=== PATIENT | female | born 1945 | race Caucasian/White ===

== ENCOUNTER 2018-06-04 06:11 | Inpatient (IN) | payer MEDICARE ==
[2018-06-04] MEDS ORDERED: Protamine Sulfate 50 MG/5 ML VIAL ONE (06:31)
[2018-06-04] MEDS ORDERED: Heparin 5,000 UNITS/ML VIAL ONE (06:31)
[2018-06-04] MEDS ORDERED: CEFAZOLIN 2 GM/50 ML BAG ONE (06:33)
[2018-06-04 06:42] LABS: #Basophils 0.1 thou/uL (0.0-0.2); #Eosinphils 0.7 thou/uL (0.0-0.7); #Lymphocytes 2.2 thou/uL (1.20-3.40); #Monocytes 0.7 thou/uL (0.11-0.59); #Neutrophils 3.8 thou/uL (1.40-6.50); %Basophils 1.1 % (0.0-1.0); %Eosinophils 9.2 % (0.0-10.0); %Lymphocytes 29.4 % (21.0-51.0); %Monocytes 8.9 % (0.0-10.0); %Neutrophils 51.4 % (42.0-75.0); Hemoglobin 12.2 g/dL (12.0-16.0); Mean Corpuscular HGB CONC 31.3 g/dL (32.0-36.0); Mean Corpuscular Hemoglobin 26.2 pg (27.0-31.0); Mean Corpuscular Volume 83.8 fL (78.0-98.0); Mean Platelet Volume 9.1 fL (7.4-10.4); Platelet Count 271 thou/uL (130-400); RBC Distribution Width 17.4 % (11.5-14.5); Red Blood Cell (RBC) Count 4.65 mill/uL (4.20-5.40); White Blood Cell (WBC) Count 7.3 thou/uL (4.8-10.8)
[2018-06-04 07:02] LABS: Anion Gap 11 mmol/L (10-20); BUN (Urea Nitrogen) 12 mg/dL (9.8-20.1); Calc. Creatinine Clearance 76 mL/min (70-130); Calcium 10.1 mg/dL (7.8-10.44); Carbon Dioxide 27 mmol/L (23-31); Chloride 106 mmol/L (98-107); Estimated GFR-MDRD 77; Glucose 114 mg/dL (83-110); Potassium 3.9 mmol/L (3.5-5.1); Sodium 140 mmol/L (136-145)
[2018-06-04] MEDS ORDERED: Nitroglycerin 50 MG/250 ML BOT 250 ML ONE (07:33)
[2018-06-04] MEDS ORDERED: Fentanyl 100 MCG/2 ML VIAL ONE (07:33)
[2018-06-04] MEDS ORDERED: Bupivacaine HCl 0.5%/Epinephrine 1:200,000/PF 30 ml Vial ONE (08:01)
[2018-06-04] MEDS ORDERED: Promethazine HCl 25 MG/ML VIAL SLOW IVP PRN (09:16)
[2018-06-04] MEDS ORDERED: Promethazine HCl 25 MG/ML VIAL IM PRN ×2 (09:16→14:23)
[2018-06-04] MEDS ORDERED: Ondansetron HCl/PF 4 MG/2 ML Vial IVP PRN (09:16)
[2018-06-04] MEDS ORDERED: Ondansetron PF 4 MG/2 ML Vial ONE (09:20)
--- NOTE | 2018-06-04 10:05 | OP ---
DATE OF PROCEDURE: 06/04/2018 PREOPERATIVE DIAGNOSIS: Asymptomatic right carotid stenosis. POSTOPERATIVE DIAGNOSIS: Asymptomatic right carotid stenosis. PROCEDURE: Right carotid endarterectomy with patch angioplasty. SURGEON: Brain Faria M.D. ANESTHESIA: General endotracheal. ESTIMATED BLOOD LOSS: Less than 100. SPECIMENS: Right jugular chain lymph nodes. PROCEDURE IN DETAIL: After consent was obtained, the patient was brought to the operating room and p laced in supine position on the operating room table. Appropriate anesthetic monitor was placed and general endotracheal anesthesia induced. Head was rotated to the left. Right neck was prepped and d raped in usual sterile fashion. Joints were appropriately supported. The skin incision was made barbara ng the anterior border of sternocleidomastoid. Platysma was incised with electrocautery. Sternoclei domastoid muscle was mobilized. The incision extended high towards the jaw line due to the extent of distal plaque within her internal carotid artery. Facial vein branch was divided between clips and ties. The common internal and external carotid arteries were carefully exposed. 5000 units of hepar in were given. After 3 minutes, internal, common, and external carotid arteries were serially clampe d. Incision was made on the common carotid artery extended through the bulb onto the internal caroti d artery distal to the plaque. A 10-[place] shunt was placed and antegrade flow reestablished. Endarterectomy was begun in the medial plane on the common carotid artery. This was extended throu gh the bulb on the internal carotid artery. Good tapered distal endpoint was obtained. An eversion endarterectomy was performed of the external carotid artery. Medial fibers were debrided. Artery wa s flushed with heparinized saline. Bovine pericardial patch was sewn in place with running 6-0 Prole ne suture. Prior to completion of the patch suture line, the shunt was clamped and removed. Arterie s were backbled and flushed with heparinized saline. Patch suture line was completed. Antegrade alta w was then reestablished up the external carotid artery for 10 seconds. Internal carotid artery ante grade flow was then reestablished. 50 mg of protamine was given. Hemostasis was ensured and within the patch. The 30 mL of 0.5% Marcaine with epinephrine was injected in a field block. The wound was copiously irrigated, closed in layers and Dermabond applied to the skin. The patient was awakened and neurologically intact at completion. The patient was transferred to the recovery room in stable condition. Needle, sponge, and instrument counts were all reported correct at the end of the procedure.
[2018-06-04] MEDS ORDERED: hydrALAZINE 20 MG/ML VIAL ONE (10:44)
[2018-06-04] MEDS ORDERED: Ondansetron PF 4 MG/2 ML Vial IVP PRN (14:23)
[2018-06-04] MEDS ORDERED: Nitroglycerin 50 MG/250 ML BOT 250 ML IVPB PRN (14:23)
[2018-06-04] MEDS ORDERED: Insulin Regular 300 UNITS/3 ML VIAL SC PRN (14:23)
[2018-06-04] MEDS ORDERED: Acetaminophen 325 MG TAB PO PRN (14:23)
[2018-06-04] MEDS ORDERED: Phenylephrine 10 MG/NS 250 ML 250 ML IVPB PRN (14:23)
[2018-06-04] MEDS ORDERED: CEFAZOLIN/Water 2 GM/20 ML SYRINGE SLOW IVP SCH (14:23)
[2018-06-04] MEDS ORDERED: Fentanyl 100 MCG/2 ML VIAL SLOW IVP PRN (14:23)
[2018-06-04] MEDS ORDERED: niCARdipine HCl 25 MG in Sodium Chloride 0.9% 250 ML 240 ML IVPB PRN (14:23)
[2018-06-04] MEDS ORDERED: hydrALAZINE 20 MG/ML VIAL SLOW IVP PRN (14:23)
[2018-06-04 14:41] VITALS: BMI 26.5
[2018-06-04] MEDS: Gabapentin 300 MG CAP PO SCH ×2 (16:10→20:20)
[2018-06-04] MEDS: hydrALAZINE 25 MG TAB PO SCH ×2 (16:10→20:19)
[2018-06-04] MEDS: CEFAZOLIN 2 GM/50 ML-DEXTROSE 2 GM in Premix Bag 1 BAG IVPB SCH (16:43)
[2018-06-04] MEDS: metFORMIN 500 MG TAB PO SCH (16:43)
[2018-06-04] MEDS: Sodium Chloride 0.9% 1,000 ML IV SCH (16:47)
--- NOTE | 2018-06-04 17:05 | EKG ---
Test Reason : PREOP Blood Pressure : / mmHG Vent. Rate : 057 BPM Atrial Rate : 057 BPM P-R Int : 166 ms QRS Dur : 086 ms QT Int : 432 ms P-R-T Axes : 064 -13 034 degrees QTc Int : 420 ms Sinus bradycardia Minimal voltage criteria for LVH, may be normal variant Borderline ECG No previous ECGs available Confirmed by DR. Meme MITCHELL ([id number]) on 06/04/2018 5:04:51 PM Referred By: Mehran LUBIN Confirmed By:DR. Meme MITCHELL
[2018-06-04] MEDS: glipiZIDE 10 MG TAB PO SCH (20:20)
[2018-06-04] MEDS: Carvedilol 25 MG TAB PO SCH (20:20)
[2018-06-04 20:21] VITALS: BP 120/40
[2018-06-04] MEDS ORDERED: Loratadine 10 MG TAB PO SCH (21:00)
[2018-06-05] MEDS: CEFAZOLIN 2 GM/50 ML-DEXTROSE 2 GM in Premix Bag 1 BAG IVPB SCH ×2 (00:30→08:08)
[2018-06-05 02:11] VITALS: TEMP 98.3
--- NOTE | 2018-06-05 06:40 | DIS ---
DATE OF ADMISSION: 06/04/2018 DATE OF DISCHARGE: 06/05/2018 DIAGNOSIS: Asymptomatic right carotid stenosis. PROCEDURE: Right carotid endarterectomy with patch angioplasty. DESCRIPTION OF HOSPITAL STAY: Ms. Rosenthal was admitted for elective carotid endarterectomy. She has done well postoperatively. She is neurologically intact. Being discharged to home in good condition . Follow up with me in 2 weeks. DISCHARGE MEDICATIONS: Unchanged from her admission medications.
[2018-06-05] MEDS: hydrALAZINE 25 MG TAB PO SCH (08:05)
[2018-06-05] MEDS: Gabapentin 300 MG CAP PO SCH (08:05)
[2018-06-05] MEDS: Carvedilol 25 MG TAB PO SCH (08:06)
[2018-06-05] MEDS: metFORMIN 500 MG TAB PO SCH (08:06)
[2018-06-05] MEDS: glipiZIDE 10 MG TAB PO SCH (08:06)
[2018-06-05] MEDS ORDERED: Niacin 500 MG TAB PO SCH (09:00)
[2018-06-05] MEDS ORDERED: Ferrous Sulfate 325 MG TAB PO SCH (09:00)
[2018-06-05] MEDS ORDERED: Aspirin 81 mg Enteric Coated Tablet PO SCH (09:00)
[2018-06-05] MEDS ORDERED: Lactinex Tablet PO SCH (09:00)
[2018-06-05] MEDS: Sodium Chloride 0.9% 1,000 ML IV SCH ×2 (09:09→09:32)
== END 2018-06-05 09:00 | disposition home or self-care (01) | DRG 39 ==
LOC: SURG A 06:11 → CCU 14:00
PROVIDERS: ADMIT Thoracic Surgery (Cardiothoracic Vascular Surgery); ATTEND Thoracic Surgery (Cardiothoracic Vascular Surgery)
PROC: 03CH0ZZ Extirpation of Matter from Right Common Carotid Artery, Open Approach (ICD-10-PCS; principal; 2018-06-04)
PROC: 03CK0ZZ Extirpation of Matter from Right Internal Carotid Artery, Open Approach (ICD-10-PCS; 2018-06-04)
PROC: 03CM0ZZ Extirpation of Matter from Right External Carotid Artery, Open Approach (ICD-10-PCS; 2018-06-04)
PROC: 03UH0KZ Supplement Right Common Carotid Artery with Nonautologous Tissue Substitute, Open Approach (ICD-10-PCS; 2018-06-04)
PROC: 03UK0KZ Supplement Right Internal Carotid Artery with Nonautologous Tissue Substitute, Open Approach (ICD-10-PCS; 2018-06-04)
PROC: 03UM0KZ Supplement Right External Carotid Artery with Nonautologous Tissue Substitute, Open Approach (ICD-10-PCS; 2018-06-04)
PROC: 07T10ZZ Resection of Right Neck Lymphatic, Open Approach (ICD-10-PCS; 2018-06-04)
DX: I65.21 Occlusion and stenosis of right carotid artery (principal); D64.9 Anemia, unspecified; F41.9 Anxiety disorder, unspecified; E11.9 Type 2 diabetes mellitus without complications; Z79.84 Long term (current) use of oral hypoglycemic drugs; K21.9 Gastro-esophageal reflux disease without esophagitis; I25.2 Old myocardial infarction; I10 Essential (primary) hypertension; Z87.891 Personal history of nicotine dependence; E78.2 Mixed hyperlipidemia; R06.09 Other forms of dyspnea; Z88.8 Allergy status to other drugs, medicaments and biological substances
CPT/HCPCS: 36415; 36416; 80048; 85025; 88184; 88307; 88341; 88342; 93005; 93010; 94640; C1769; J0360; J0670; J1642; J1644; J2405; J2720; J3010; J7620